=== PATIENT | female | born 1990 | race Caucasian/White ===

== ENCOUNTER 2017-12-03 13:41 | Emergency (ER) | payer OTHER, MEDICAID ==
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
[2017-12-03] MEDS ORDERED: ONDANSETRON DISINTEGRATING 4 MG TAB ONE (14:25)
[2017-12-03] MEDS ORDERED: ONDANSETRON DISINTEGRATING 4 MG TAB PO ONE (14:30)
[2017-12-03 15:18] VITALS: BP 110/72
== END 2017-12-03 15:18 | disposition home or self-care (01) ==
LOC: CED 13:41
DX: S06.0X0A Concussion without loss of consciousness, initial encounter (principal); S16.1XXA Strain of muscle, fascia and tendon at neck level, initial encounter; V48.6XXA Car passenger injured in noncollision transport accident in traffic accident, initial encounter; Y92.481 Parking lot as the place of occurrence of the external cause